=== PATIENT | male | born 1980 | race Caucasian/White ===

== ENCOUNTER 2022-10-08 06:54 | Emergency (ER) | payer SELFPAY ==
[~2022-10-08] VITALS: Ht 170.2 cm; Wt 68.2 kg
[~2022-10-08 06:54] MED LIST: FLEXERIL10 MG PO; NAPROSYN500 MG PO; ULTRAM50 M1 PO
[2022-10-08 07:13] VITALS: BP 141/94
[2022-10-08 07:15] VITALS: BP 127/88
[2022-10-08] MEDS ORDERED: MUPIROCIN2 % EX (07:30)
[2022-10-08] MEDS ORDERED: CEPHALEXIN500 MG PO (07:30)
[2022-10-08 07:38] VITALS: BP 126/94
== END 2022-10-08 07:49 | disposition home or self-care (01) | DRG 603 ==
LOC: ED 06:54
DX: L03.211 Cellulitis of face (principal)